=== PATIENT | female | born 1985 | race Caucasian/White ===

== ENCOUNTER 2020-05-12 19:04 | Emergency (ER) | payer OTHER ==
[~2020-05-12] VITALS: Ht 175.3 cm; Wt 127.0 kg
[2020-05-12] MEDS ORDERED: ZOLOFT100 MG PO (20:01)
[2020-05-12] MEDS ORDERED: ROBAXIN 750 MG750 MG PO (21:00)
[2020-05-12] MEDS ORDERED: NAPROSYN500 M1 PO (21:00)
[2020-05-12] MEDS ORDERED: ULTRAM 50MG TAB50 MG PO (21:00)
[2020-05-12 21:19] VITALS: BP 150/76
== END 2020-05-12 21:19 | disposition home or self-care (01) ==
LOC: ER 19:04
DX: G89.29 Other chronic pain (principal); M54.5 Low back pain; Z88.1 Allergy status to other antibiotic agents; Z79.899 Other long term (current) drug therapy